=== PATIENT | female | born 1950 | race Two or more races ===

== ENCOUNTER 2024-07-07 06:51 | Day surgery (SDC) | payer MEDICARE, OTHER ==
[~2024-07-07] VITALS: Ht 154.9 cm; Wt 77.1 kg
[2024-07-07] VITALS (7 sets, daily range): BP systolic 106–123; BP diastolic 44–67; PULSE 72–76; RESP 12; O2SAT 93–94
[~2024-07-07 06:51] MED LIST: ASPI-543 PO; ATOR10TA PO; DIPH25CA51 PO; EZET10TA22 PO; GABA-1250 PO; GLYB2.5T8 PO; HYDRX10T PO; INSLANTI SC; INSLISPI SC; LIDOCAINE 2%HCL (LOCAL ANESTH.) INJ 20ML MDV ONE; METF-370 PO; METO-281 PO; PANT40TA2 PO; PAR20T PO; POTA-215 PO; PRAV20TA3 PO; PROP1TAB51 PO; SILD20TA12 PO; VERAPAMIL 2.5MG/ML INJ 2ML VIAL IV ONE; ZOFR4T PO
[2024-07-07] MEDS ORDERED: ANGIOMAX 250 MG VIAL IV ONE (06:52)
[2024-07-07] MEDS ORDERED: MIDAZOLAM HCL 2MG/2ML 2ml VIAL (1mg/ml) ONE (06:53)
[2024-07-07] MEDS ORDERED: SODIUM CHL 0.9% 0 ML ONE (06:53)
[2024-07-07] MEDS ORDERED: VERAPAMIL 2.5MG/ML INJ 2ML VIAL IV ONE (06:53)
[2024-07-07] MEDS ORDERED: fentaNYL CITRATE 100 MCG/2 ML VL ONE (06:53)
[2024-07-07] MEDS ORDERED: HEPARIN SODIUM (PORCINE) 5000 UNITS/ML 1ML VIAL ONE (07:54)
--- NOTE | 2024-07-07 09:08 | DVHOP2 ---
Operative Report Procedures performed: Right and left heart catheterization and bilateral coronary angiogram Moderate sedation Diagnosis: Mild pulmonary hypertension No angiographic evidence for epicardial coronary artery disease (normal coronaries) Normal LVEF (60%) and normal LVEDP Cardiac suggestion for management: Optimized medical therapy Lifestyle and risk factor modifications Findings: PCW: 8/7/6 mm Hg PA: 38/18/25 mm Hg RV: 39/0/6 mm Hg RA: 5/4/3 mm Hg Cardiac output: 3.67 liters/minute Cardiac index: 2.08 liters/minute/M LV: 100/7/10 mm Hg LVEF: 60% There was no transaortic valve pressure gradient Left main: Left main was coming off the left sinus of Valsalva. There was no angiographic evidence of disease in left main. LAD: LAD was coming off the left main. It provided a moderate-sized 1st diagonal and large-sized 2nd diagonal. LAD throughout its course and branches did not reveal any angiographic evidence of disease. LCX: LCX was coming off the left main. It provided large-sized first and second obtuse marginals. LCX itself continued as a moderate-sized vessel/OM3. LCX throughout its course and branches did not reveal any angiographic evidence of disease. RCA: RCA was coming off the right sinus of Valsalva. It was the dominant vessel and provided RPDA. RCA throughout its course and branches did not reveal any a ngiographic evidence of disease. Presentation: Patient is a 55-year-old female who presented to the office with dyspnea on exertion. Comorbidities include diabetes mellitus, obstructive sleep apnea, obesity, erythrocytosis, liver cirrhosis, osteoporosis, pulmonary hypertension, CKD, hypertension, hyperlipidemia, chronic pain syndrome and history of esophageal varices. She is active cigarette smoker. Nuclear stress test of February 2023 was normal. Echocardiogram of September 2023 revealed ejection fraction of 65-70%, mild biatrial enlargement, mild mitral annual calcification/MR/TR and right ventricular systolic pressure of 59 mm Hg. Patient was diagnosed with pulmonary hypertension. Patient was sent for right and left heart catheterization. Procedure: After obtaining informed consent, the patient was brought to the [facility]. She was prepped and draped in sterile fashion. There was a previously placed access in the right antecubital area. Under sterilize technique, the right antecubital access was exchanged to a 6 Russian slender sheath (using a over the wire technique). Using modified Seldinger technique, right radial marcel ry was used to access the arterial system for performing left heart catheterization. 2.5 mg of verapamil and 100 mcg of nitroglycerin were given as a cocktail into the right radial sheath. 4000 units of heparin was given peripherally.Over a run-through wire, a 6 Russian [place]Jade catheter was taken to the right-sided chambers of the heart. We proceeded to perform right heart cath eterization (obtaining pressures and calculating cardiac output, thermodilution technique). Patient was given 1 mg of Versed and 50 mcg of fentanyl for moderate sedation. A 5 Russian tiger 4 diagnostic catheter was used to perform left heart catheterization (obtaining pressures and performing left ventriculography) and bilateral coronary angiography. There was no indication for any transcatheter revascularization. Total bleeding was less than 5 mL. There was no dissection/hematoma/perforation. Patient tolerated the procedure with no complication. Right antecubital/venous access was managed by manual pressure. Right radial artery access site was managed by deploying a TR band. Fluoroscopy time: 6.1 minutes contrast: 40 mL of GLORIA Saenz MD Jul 07, 2024 09:08
[2024-07-07] MEDS ORDERED: HEPARIN IN NS 1000Units/500mL 1,500 ML ONE (10:18)
[2024-07-07] MEDS ORDERED: IODIXANOL 320MG/ML 100ML BTL IV ONE (10:18)
== END 2024-07-07 11:25 | disposition home or self-care (01) ==
LOC: CATH 06:51
PROVIDERS: ATTEND Internal Medicine Cardiovascular Disease
DX: R07.9 Chest pain, unspecified (principal); I27.20 Pulmonary hypertension, unspecified; E11.22 Type 2 diabetes mellitus with diabetic chronic kidney disease; E66.9 Obesity, unspecified; E78.5 Hyperlipidemia, unspecified; F17.210 Nicotine dependence, cigarettes, uncomplicated; G47.33 Obstructive sleep apnea (adult) (pediatric); G89.4 Chronic pain syndrome; I13.10 Hypertensive heart and chronic kidney disease without heart failure, with stage 1 through stage 4 chronic kidney disease, or unspecified chronic kidney disease; I34.81 Nonrheumatic mitral (valve) annulus calcification; K74.60 Unspecified cirrhosis of liver; M81.0 Age-related osteoporosis without current pathological fracture; N18.9 Chronic kidney disease, unspecified
CPT/HCPCS: 93460; C1769; C1894; J1644; J2250; J3010; Q9967; 99152